=== PATIENT | female | born 1950 | race Caucasian/White ===

== ENCOUNTER → 2019-02-19 | Outpatient (CLI) | payer OTHER ==
[~2019-02-19] MED LIST: LEVO112T2 PO
--- NOTE | 2019-02-19 16:16 | RAD ---
EXAM: Right lower extremity venous Doppler sonogram. HISTORY: Pain and swelling. TECHNIQUE: Keating scale and color Doppler sonographic evaluation of the right lower extremity veins with spectral waveform analysis was performed. FINDINGS: There is normal color flow, normal compressibility and there are normal spectral waveforms in the common femoral, superficial femoral, popliteal, posterior tibial and greater saphenous veins. IMPRESSION: No Doppler evidence of lower extremity deep venous thrombosis. Electronically signed by: Ni Hernandez MD (02/19/2019 4:13 PM) [place] [id number]
== END | disposition home or self-care (01) ==
LOC: US 15:29
PROVIDERS: ATTEND Preventive Medicine Occupational Medicine
DX: I82.491 Acute embolism and thrombosis of other specified deep vein of right lower extremity (principal)
CPT/HCPCS: 93971

== ENCOUNTER → 2020-03-04 | Outpatient (CLI) | payer BC, OTHER ==
[~2020-03-04] MED LIST changes: +BUPR200T2 PO; +HYDR-2765 PO; +LEXAPRO20 MG PO; +LISI2.5T PO; +PROM12.58 PO
== END ==
LOC: LAB 11:29
PROVIDERS: ATTEND Orthopaedic Surgery
DX: Z01.812 Encounter for preprocedural laboratory examination (principal); S83.241A Other tear of medial meniscus, current injury, right knee, initial encounter; X58.XXXA Exposure to other specified factors, initial encounter; Y93.89 Activity, other specified; Y92.89 Other specified places as the place of occurrence of the external cause; Y99.8 Other external cause status; Z20.828 Contact with and (suspected) exposure to other viral communicable diseases
CPT/HCPCS: U0003

== ENCOUNTER 2020-03-08 07:21 | Day surgery (SDC) | payer BC ==
[~2020-03-08] VITALS: Ht 152.4 cm; Wt 63.5 kg
[~2020-03-08 07:21] MED LIST changes: -HYDR-2765 PO; +HYDROmorphone 2 MG/ML VIAL IVP PRN; +IV RINGERS,LACTATED 1000ML 1,000 ML IV SCH; -LISI2.5T PO; +MORPHINE SULFATE 2 MG/ML VIAL. IVP PRN; +PROCHLORPERAZINE 10 MG/2 ML VIAL. IVP PRN; -PROM12.58 PO; +fentaNYL PF VIAL 100 MCG/2 ML VIAL IVP PRN
[2020-03-08] MEDS ORDERED: BUPIVACAINE-EPI 0.25% 30 ML VIAL KIT. ONE ×2 (07:25)
[2020-03-08] MEDS ORDERED: EPINEPHrine VIAL 30 MG/30 ML VIAL ONE (07:25)
[2020-03-08] MEDS ORDERED: ONDANSETRON PF 4 MG/2 ML VIAL. ONE (08:38)
[2020-03-08] MEDS ORDERED: LIDOCAINE 2% PF 5 ML VIAL. ONE (08:38)
[2020-03-08] MEDS ORDERED: PROPOFOL 10 MG/ML (20ML) VIAL. IV ONE (08:38)
[2020-03-08] MEDS ORDERED: DEXAMETHASONE SOD PHOS 4 MG/ML VIAL ONE (08:38)
[2020-03-08] MEDS ORDERED: fentaNYL PF VIAL 100 MCG/2 ML VIAL ONE (08:39)
[2020-03-08] MEDS ORDERED: PHENYLEPHRINE in 0.9% NACL PF 1 MG/10 ML SYRINGE. IV ONE (10:20)
[2020-03-08] MEDS ORDERED: SEVOFLURANE 61 TO 120 MINUTES. IH ONE (10:21)
--- NOTE | 2020-03-08 11:02 | PDOC4 ---
Operative Note Operative Note Date of Procedure: March 08, 2020 Preoperative Diagnosis: right knee medial meniscus tear Postoperative Diagnosis: * complex tear of medial meniscus, current injury, left knee, initial encounter S83.232A * complex tear of lateral meniscus, current injury, right knee, initial encounter, S83.271A Procedures Performed: right knee arthroscopy, surgical, with meniscectomy, medial AND lateral, including meniscal shaving, including debridement/shaving of articular cartilage (chondroplasty) CPT 59920 Surgeon: True Todd MD Maintenance Technician 3Rd Shift: Arnold K[employer] CSA Anesthesia: General Estimated Blood Loss: 5 mL Specimens: none Drains: none Complications: none Tourniquet time: 25 minutes at 300 mm Hg Indications for Procedure: The patient is a 69-year-old with right knee pain, unrelieved with nonoperative treatment. Exam and MRI are consistent with a meniscus tear. We talked about the risks and benefits of proceeding with an a rthroscopic procedure. We talked about potential risks of ongoing pain, progressive arthritis, bleeding, infection, blood clots, or other potential surgical or anesthetic complications. All of the patient's questions about surgery were answered and they desired to proceed. Written consent was obtained. Description of Operation: The patient was identified in the preoperative holding area. The correct right knee was marked by me. The patient was taken to the operating room, where a general anesthetic was used. Preoperative antibiotics were given intravenously. A time-out procedure was performed. A tourniquet was placed on the upper thigh. Local anesthetic 20 mL of 0.25% bupivacaine was injected using sterile technique into the knee joint. The limb was prepared circumferentially with ChloraPrep solution and sterile waterproof arthroscopy drapes were applied. The limb was exsanguinated with an Esmarch bandage and the tourniquet was inflated. Lateral and medial arthroscopy portals were established. The medial meniscus showed a complex unrepairable tear with unstable flaps. A meniscectomy was performed with basket forceps and the motorized shaver back to a smooth stable base, and the resection tapered into the middle one-third of the meniscus.The medial tibiofemoral joint showed chondromalacia Outerbridge grade III, and a shaving chondroplasty was performed removing unstable fragments of cartilage with the shaver. There was a patterned area of cartilage loss as if there was mechanical impingement on the condyle such as a loose body, but no loose body or other mechanical findings could be seen. The intercondylar notch was free of loose bodies, and the ACL was intact. The lateral tibiofemoral joint showed a complex unrepairable meniscus tear, and a meniscectomy was performed with basket forceps and the motorized shaver back to a smooth stable base.The lateral articular surfaces showed chondromalacia Outerbridge grade II, so a shaving chondroplasty was performed removing loose unstable fragments of articular cartilage. The patellofemoral joint showed chondromalacia Outerbridge grade II, so a shaving chondroplasty was performed removing loose unstable fragments of articular cartilage. The suprapatellar pouch, medial and lateral gutters were free of loose bodies. Copious irrigation was used to drain all meniscal and chondral fragments, and the knee was drained of fluid. The portals were closed with #3-0 Prolene interrupted sutures. Additional local anesthetic, 30 mL of 0.25% bupivacaine with epinephrine was injected. A bulky sterile dressing was applied and the tourniquet was released. Needle and sponge counts were correct and there were no apparent complications. TRUE TODD MD Mar 08, 2020 11:02
[2020-03-08 11:45] VITALS: BP 151/76
[2020-03-08] MEDS ORDERED: HYDROcodone/APAP 7.5/325MG 1 TAB TABLET PO ONE ×2 (11:45)
[2020-03-08] MEDS ORDERED: HYDR-2765 PO (12:22)
[2020-03-08] MEDS ORDERED: PROM12.58 PO (12:23)
[2020-04-01] MEDS ORDERED: LISI2.5T PO (11:01)
== END 2020-03-08 12:45 | disposition home or self-care (01) ==
LOC: SURG 07:21 → EDSTATUS 10:00 → SURG 12:45
PROVIDERS: ATTEND Orthopaedic Surgery
DX: S83.231A Complex tear of medial meniscus, current injury, right knee, initial encounter (principal); S83.271A Complex tear of lateral meniscus, current injury, right knee, initial encounter; E03.9 Hypothyroidism, unspecified; M19.90 Unspecified osteoarthritis, unspecified site; F32.9 Major depressive disorder, single episode, unspecified; Z90.710 Acquired absence of both cervix and uterus; Z79.899 Other long term (current) drug therapy; X58.XXXA Exposure to other specified factors, initial encounter; Y93.89 Activity, other specified; Y92.89 Other specified places as the place of occurrence of the external cause; Y99.8 Other external cause status
CPT/HCPCS: 29880; J0171; J0690; J1100; J2370; J2405; J2704; J3010

== ENCOUNTER → 2020-04-01 | Outpatient (CLI) | payer BC ==
[2020-03-08 11:45] VITALS: BP 151/76
[~2020-04-01] MED LIST changes: +BUPIVACAINE MPF 0.5% 10 ML VIAL. INT ART ONE; +HYDR-2765 PO; -HYDROmorphone 2 MG/ML VIAL IVP PRN; +IOHEXOL 300 MG/ML 50 ML VIAL. INT ART ONE; -IV RINGERS,LACTATED 1000ML 1,000 ML IV SCH; +LIDOCAINE 1% Multi-Dose 20 ML VIAL. ID ONE; +LISI2.5T PO; -MORPHINE SULFATE 2 MG/ML VIAL. IVP PRN; -PROCHLORPERAZINE 10 MG/2 ML VIAL. IVP PRN; +PROM12.58 PO; -fentaNYL PF VIAL 100 MCG/2 ML VIAL IVP PRN; +methylPREDNISolone ACETATE 40 MG/ML VIAL. INT ART ONE
--- NOTE | 2020-04-01 16:32 | KCIC ---
EXAM: Right hip joint injection WITH Fluoroscopic guidance DATE: 04/01/2020 10:32 AM CLINICAL HISTORY: Reason: Osteoarthritis Rt hip / Spl. Instructions: 3mL Lidocaine,4mL Bupivicaine,80 mg Depo Medrol,5mL Omni 300,6sec fl, 1ima / History: Hip and groin pain since 01/2020 COMPARISON: None pertinent TECHNIQUE: The patient was informed of the indications and alternatives for this procedure as well as risks and benefits. No immediate contraindication identified. The patient provided informed, written consent. Laterality was confirmed by the entire team following a time out. Following initial fluoroscopic right hip localization, a suitable area was sterilely prepped and drap ed. Local anesthesia was administered with 1% xylocaine. With intermittent fluoroscopic observation, a 22-gauge spinal needle was advanced into the right hip joint sheath/capsule with confirmation of in tra-synovial position with infusion of less than 1 cc iodinated contrast. Subsequent infusion solutio n containing 80 mg Depo-Medrol, 4 mL bupivacaine 0.5 percent, 3 mL lidocaine 1 percent into the right hip joint. Hemostasis with local pressure. Local clinical exam negative for immediate complication. Patient informed re local potential signs or symptoms that may indicate need to return to ER/Ordering physician for further evaluation. Patient informed re precautionary measures after intra-synovial in jection of anesthetic. Patient informed re potential for short term increase local symptomatology due to steroid flare. Patient expressed understanding. Performing Physicians: Dr. Jensen Jenkins Blood Loss: 0 cc Pre-procedural Pain Scale: 7 Post-procedural Pain Scale: 4 Total Fluoroscopy time: 6 seconds Total spot images taken: 0 IMPRESSION: Successful intra-synovial injection with steroid and anesthetic right hip joint per clinical request. Electronically signed by: Jj Jenkins MD (04/01/2020 4:29 PM) [id number]
== END | disposition home or self-care (01) ==
LOC: KCIC 10:11
PROVIDERS: ATTEND Orthopaedic Surgery
DX: M16.11 Unilateral primary osteoarthritis, right hip (principal); E03.9 Hypothyroidism, unspecified; F32.9 Major depressive disorder, single episode, unspecified; Z90.710 Acquired absence of both cervix and uterus; Z98.890 Other specified postprocedural states; Z79.899 Other long term (current) drug therapy
CPT/HCPCS: 20610; 77002; J1030; J3490; Q9967